=== PATIENT | female | born 1945 | race Caucasian/White ===

== ENCOUNTER 2017-06-29 15:38 | Emergency (ER) | payer OTHER, MEDICARE ==
--- NOTE | 2017-06-29 15:57 | CPEKG ---
Heart Rate: 55 RR Interval: 1091 P-R Interval: 140 QRSD Interval: 90 QT Interval: 432 QTC Interval: 414 P [place]: 73 QRS [place]: 16 T Wave [place]: 36 EKG Severity - NORMAL ECG - EKG Impression: SINUS RHYTHM Electronically Signed By: Ishmael Thacker 29-Jun-2017 16:24:21
[2017-06-29] MEDS ORDERED: NS 1,000 ML IV ONE ×2 (16:14)
[2017-06-29 16:21] LABS: % IMMATURE GRANULYOCYTES 0.3 % (0.0-1.1); ABSOLUTE IMMATURE GRANULOCYTES 0.03 10^3/uL (0.00-0.10); ADD DIFF? NO; ADD MORPH? NO; ADD SCAN? NO; ATYPICAL LYMPHOCYTE FLAG 0 (0-99); FRAGMENT RBC FLAG 0 (0-99); HEMATOCRIT 37.8 % (38.0-47.0); HEMOGLOBIN 13.1 g/dL (12.6-16.3); LEFT SHIFT FLG 0 (0-99); LIPEMIA HEMOLYSIS FLAG 90 (0-99); MEAN CELL HEMOGLOBIN 31.6 pg (27.9-34.1); MEAN CELL HEMOGLOBIN CONCENTR. 34.7 g/dL (32.4-36.7); MEAN CELL VOLUME 91.3 fL (81.5-99.8); MEAN PLATELET VOLUME 8.6 fL (8.7-11.7); PLATELET CLUMPS FLAG 0 (0-99); PLATELET COUNT 203 10^3/uL (150-400); RED BLOOD CELL COUNT 4.14 10^6/uL (4.18-5.33); RED CELL DISTRIBUTION WIDTH 12.8 % (11.5-15.2)
--- NOTE | 2017-06-29 16:23 | EDPHY ---
H & P Stated Complaint: weakness over weekend/cp saw pcp/abnl ekg Time Seen by Provider: 06/29/17 16:07 HPI/ROS: CHIEF COMPLAINT: Fatigue and malaise HISTORY OF PRESENT ILLNESS: The patient is a 72-year-old female referred from the [facility]. She has been complaining of generalized weakness over the weekend. She also feels that her arms are heavy and she has not been sleeping well. She complains of pain throughout her entire body including some pain in her chest and left shoulder. She was seen at the [facility] [place] by Dr. Bell today who sent her here for lab work. She also obtained an EKG and remarked there was some slight abnormality. The the patient states that she had a positive stress test [address] Guzman but refused the cardiac catheterization because she did not feel that she had any risk factors other than her dad dying of cardiac disease. She states that her son had something similar last week. REVIEW OF SYSTEMS: Constitutional: See HPI denies: chills, fever, recent illness, recent injury EENTM: denies: blurred vision, double vision, nose congestion Respiratory: denies: cough, shortness of breath Cardiac: denies: chest pain, irregular heart rate, lightheadedness, palpitations Gastrointestinal/Abdominal: denies: abdominal pain, diarrhea, nausea, vomiting, blood streaked stools Genitourinary: denies: dysuria, frequency, hematuria, pain Musculoskeletal: denies: joint pain, muscle pain Skin: denies: lesions, rash, jaundice, bruising Neurological: denies: headache, numbness, paresthesia, tingling, dizziness, weakness Hematologic/Lymphatic: denies: blood clots, easy bleeding, easy bruising Immunologic/allergic: denies: HIV/AIDS, transplant EXAM: GENERAL: Well-appearing, well-nourished and in no acute distress. HEAD: Atraumatic, normocephalic. EYES: Pupils equal round and reactive to light, extraocular movements intact, sclera anicteric, conjunctiva are normal. ENT: TMs normal, nares patent, oropharynx clear without exudates. Moist mucous membranes. NECK: Normal range of motion, supple without lymphadenopathy or JVD. LUNGS: Breath sounds clear to auscultation bilaterally and equal. No wheezes rales or rhonchi. HEART: Regular rate and rhythm without murmurs, rubs or gallops. ABDOMEN: Soft, nontender, normoactive bowel sounds. No guarding, no rebound. No masses appreciated. BACK: No CVA tenderness, no spinal tenderness, step-offs or deformities EXTREMITIES: Normal range of motion, no pitting or edema. No clubbing or cyanosis. NEUROLOGICAL: Cranial nerves II through XII grossly intact. Normal speech, normal gait. 5/5 strength, normal movement in all extremities, normal sensation PSYCH: Normal mood, normal affect. SKIN: Warm, dry, normal turgor, no visible rashes or lesions. Source: Patient Exam Limitations: No limitations - Personal History Current Tetanus/Diphtheria Vaccine: Yes - Medical/Surgical History Hx Asthma: No Hx Chronic Respiratory Disease: No Hx Diabetes: No Hx Cardiac Disease: No Hx Renal Disease: No Hx Cirrhosis: No Hx Alcoholism: No Hx HIV/AIDS: No Hx Splenectomy or Spleen Trauma: No Other PMH: healthy. +family hx father--> [place] in early 60s - Family History Significant Family History: Heart disease - Social History Smoking Status: Never smoked Alcohol Use: Sober Drug Use: None Constitutional: Initial Vital Signs Temperature (C) 36.7 C 06/29/17 15:43 Heart Rate 54 L 06/29/17 15:43 Respiratory Rate 18 06/29/17 15:43 Blood Pressure 131/61 H 06/29/17 15:43 O2 Sat (%) 97 06/29/17 15:43 O2 Delivery Mode Room Air Allergies/Adverse Reactions: Sulfa (Sulfonamide Antibiotics) Allergy (Intermediate, Verified 06/29/17 15:42) Hives Penicillins Allergy (Mild, Verified 06/29/17 15:42) Rash Home Medications: Medication Instructions Recorded NK [No Known Home Meds] 06/29/17 Medical Decision Making - Diagnostics EKG Interpretation: An EKG obtained and was read and documented in trace view. Please see trace view for full reading and report. Sinus rhythm, no acute ischemic changes, slightly bradycardic unchanged from previous, EKG done this morning unavailable. Imaging Results: Imaging Impressions Chest X-Ray 06/29/17 16:15 Impression: No acute findings in the chest. Imaging: Discussed imaging studies w/ striper spray gun Radiologist ED Course/Re-evaluation: We discussed the patient's test results. She is reassured. She is feeling better after GI cocktail. She is eager to go home. I offered admission and continue cardiac evaluation although her acute symptoms do not seem consistent with cardiac disease. She has previously been offered a catheterization and declined. She again declines. I suspect that she has a viral syndrome similar to that of her son last week. Patient's agrees and is ready to take her home. We discussed indications for returning. They will follow up with her regular doctor within 48 hours. Differential Diagnosis: Partial list of the Differential diagnosis considered include but were not limited to; viral syndrome, dehydration, electrolyte abnormality and although unlikely based on the history and physical exam, I also considered acute coronary disease, sepsis, PE. I discussed these differential diagnoses and the plan with the patient as well as the usual and expected course. The patient understands that the diagnosis is provisional and that in medicine we are not always correct and that further workup is often warranted. Usual and customary warnings were given. All of the patient's questions were answered. The patient was instructed to return to the emergency department should the symptoms at all worsen or return, otherwise to followup with the physician as we discussed. - Data Points Laboratory Results: Laboratory Results 06/29/17 16:00 06/29/17 16:00 06/29/17 06/29/17 06/29/17 16:00 16:00 16:00 WBC 9.33 10^3/uL 10^3/uL (3.80-9.50) RBC 4.14 10^6/uL L 10^6/uL (4.18-5.33) Hgb 13.1 g/dL g/dL (12.6-16.3) Hct 37.8 % L % (38.0-47.0) MCV 91.3 fL fL (81.5-99.8) MCH 31.6 pg pg (27.9-34.1) MCHC 34.7 g/dL g/dL (32.4-36.7) RDW 12.8 % % (11.5-15.2) Plt Count 203 10^3/uL 10^3/uL (150-400) MPV 8.6 fL L fL (8.7-11.7) Neut % (Auto) 77.7 % H % (39.3-74.2) Lymph % (Auto) 13.0 % L % (15.0-45.0) Grimes % (Auto) 7.2 % % (4.5-13.0) Eos % (Auto) 1.4 % % (0.6-7.6) Baso % (Auto) 0.4 % % (0.3-1.7) Nucleat RBC Rel Count 0.0 % % (0.0-0.2) Absolute Neuts (auto) 7.25 10^3/uL H 10^3/uL (1.70-6.50) Absolute Lymphs (auto) 1.21 10^3/uL 10^3/uL (1.00-3.00) Absolute Monos (auto) 0.67 10^3/uL 10^3/uL (0.30-0.80) Absolute Eos (auto) 0.13 10^3/uL 10^3/uL (0.03-0.40) Absolute Basos (auto) 0.04 10^3/uL 10^3/uL (0.02-0.10) Absolute Nucleated RBC 0.00 10^3/uL 10^3/uL (0-0.01) Immature Gran % 0.3 % % (0.0-1.1) Immature Gran # 0.03 10^3/uL 10^3/uL (0.00-0.10) PT 14.6 SEC SEC (12.0-15.0) INR 1.15 (0.83-1.16) APTT 29.0 SEC SEC (23.0-38.0) D-Dimer < 0.27 ug/mLFEU ug/mLFEU (0.00-0.50) Sodium 139 mEq/L mEq/L (134-144) Potassium 3.5 mEq/L mEq/L (3.5-5.2) Chloride 102 mEq/L mEq/L (97-110) Carbon Dioxide 25 mEq/l mEq/l (22-31) Anion Gap 12 mEq/L mEq/L (8-16) BUN 13 mg/dL mg/dL (7-23) Creatinine 0.7 mg/dL mg/dL (0.6-1.0) Estimated GFR > 60 Glucose 93 mg/dL mg/dL (70-100) Calcium 9.0 mg/dL mg/dL (8.5-10.4) Total Bilirubin 0.8 mg/dL mg/dL (0.1-1.4) Conjugated Bilirubin 0.4 mg/dL mg/dL (0.0-0.5) Unconjugated Bilirubin 0.4 mg/dL mg/dL (0.0-1.1) AST 21 IU/L IU/L (14-46) ALT 24 IU/L IU/L (9-52) Alkaline Phosphatase 69 IU/L IU/L (38-126) Troponin I < 0.012 ng/mL ng/mL (0-0.034) Total Protein 6.8 g/dL g/dL (6.3-8.2) Albumin 4.0 g/dL g/dL (3.5-5.0) Lipase 84.0 IU/L IU/L (23-300) Medications Given: Discontinued Medications Al Hydroxide/Mg Hydroxide (Maalox Susp) 30 ml PO EDNOW ONE Stop: 06/29/17 17:28 Last Admin: 06/29/17 17:36 Dose: 30 ml Hyoscyamine Sulfate (Levsin, Hyomax-Sl) 0.125 mg PO EDNOW ONE Stop: 06/29/17 17:32 Last Admin: 06/29/17 17:36 Dose: 0.125 mg Sodium Chloride (Ns) 1,000 mls @ 0 mls/hr IV ONCE ONE; Wide Open PRN Reason: Protocol Stop: 06/29/17 16:15 Last Admin: 06/29/17 16:46 Dose: 1,000 mls Sodium Chloride (Ns) 1,000 mls @ 0 mls/hr IV ONCE ONE; Wide Open PRN Reason: Protocol Stop: 06/29/17 16:15 Last Admin: 06/29/17 16:47 Dose: 1,000 mls Lidocaine (Lidocaine 2% Viscous) 5 ml PO EDNOW ONE Stop: 06/29/17 17:29 Last Admin: 06/29/17 17:36 Dose: 15 ml Departure - Departure Disposition: Home, Routine, Self-Care Clinical Impression: Body aches Fatigue Qualifiers: Fatigue type: unspecified Qualified Code(s): R53.83 - Other fatigue Condition: Fair Instructions: Viral Syndrome (ED) Referrals: Chey Bell MD [Primary Care Provider] - As per Instructions
[2017-06-29 16:33] LABS: INR 1.15 (0.83-1.16); PROTIME(PATIENT) 14.6 SEC (12.0-15.0)
[2017-06-29 16:37] LABS: ALANINE AMINOTRANSFERASE 24 IU/L (9-52); ALKALINE PHOSPHATASE 69 IU/L (38-126); ANION GAP 12 mEq/L (8-16); ASPARTATE AMINOTRANSFERASE 21 IU/L (14-46); BILIRUBIN,TOTAL 0.8 mg/dL (0.1-1.4); BILIRUBIN-CONJUGATED 0.4 mg/dL (0.0-0.5); BILIRUBIN-UNCONJUGATED 0.4 mg/dL (0.0-1.1); CARBON DIOXIDE 25 mEq/l (22-31); CHLORIDE 102 mEq/L (97-110); CREATININE 0.7 mg/dL (0.6-1.0); GLOMERULAR FILTRATION RATE > 60; GLUCOSE 93 mg/dL (70-100); POTASSIUM 3.5 mEq/L (3.5-5.2); SODIUM 139 mEq/L (134-144); TOTAL PROTEIN 6.8 g/dL (6.3-8.2)
[2017-06-29 16:48] LABS: TROPONIN I < 0.012 ng/mL (0-0.034)
[2017-06-29] MEDS ORDERED: MAG HYDROX/AL HYDROX/SIMETH 30 ML UDCUP PO ONE (17:27)
[2017-06-29] MEDS ORDERED: LIDOCAINE 2% VISCOUS 15 ML UDCUP PO ONE (17:28)
[2017-06-29] MEDS ORDERED: HYOSCYAMINE SULFATE 0.125 MG TAB PO ONE (17:31)
[2017-06-29 18:13] VITALS: RESP 16
[2017-06-29 18:16] VITALS: BP 128/58; PULSE 64; TEMP 97.9; O2SAT 96
== END 2017-06-29 18:20 | disposition home or self-care (01) ==
DX: R53.83 Other fatigue (principal); R52 Pain, unspecified; E86.9 Volume depletion, unspecified

== ENCOUNTER → 2017-10-23 | Outpatient (CLI) | payer OTHER, MEDICARE | LOC: FIMAGING 08:35 | PROVIDERS: ATTEND Physician Assistant | DX: M51.34 Other intervertebral disc degeneration, thoracic region (principal) ==

== ENCOUNTER 2017-11-10 11:24 | Day surgery (SDC) | payer OTHER, MEDICARE ==
[2017-11-10] MEDS ORDERED: diphenhydrAMINE 25 MG CAP PO ONE ×2 (11:28→11:42)
[2017-11-10] MEDS ORDERED: NS 1,000 ML IV ONE (11:28)
[2017-11-10] MEDS ORDERED: FAMOTIDINE 20 MG TAB PO ONE (11:28)
[2017-11-10] MEDS ORDERED: ASPIRIN EC 325 MG TAB PO ONE ×2 (11:28→11:43)
[2017-11-10] MEDS ORDERED: FAMOTIDINE 20 MG TAB ONE (11:42)
[2017-11-10] MEDS ORDERED: DIAZEPAM 5 MG TAB ONE (11:43)
--- NOTE | 2017-11-10 11:57 | CPEKG ---
Heart Rate: 57 RR Interval: 1053 P-R Interval: 136 QRSD Interval: 84 QT Interval: 436 QTC Interval: 425 P [place]: 69 QRS [place]: 8 T Wave [place]: 68 EKG Severity - NORMAL ECG - EKG Impression: SINUS RHYTHM Electronically Signed By: Doreen Bergeron 10-Nov-2017 19:04:59
[2017-11-10 12:10] LABS: % IMMATURE GRANULYOCYTES 0.3 % (0.0-1.1); ABSOLUTE IMMATURE GRANULOCYTES 0.02 10^3/uL (0.00-0.10); ADD DIFF? NO; ADD MORPH? NO; ADD SCAN? NO; ATYPICAL LYMPHOCYTE FLAG 10 (0-99); FRAGMENT RBC FLAG 0 (0-99); HEMATOCRIT 42.4 % (38.0-47.0); HEMOGLOBIN 14.7 g/dL (12.6-16.3); LEFT SHIFT FLG 0 (0-99); LIPEMIA HEMOLYSIS FLAG 90 (0-99); MEAN CELL HEMOGLOBIN 31.4 pg (27.9-34.1); MEAN CELL HEMOGLOBIN CONCENTR. 34.7 g/dL (32.4-36.7); MEAN CELL VOLUME 90.6 fL (81.5-99.8); MEAN PLATELET VOLUME 8.3 fL (8.7-11.7); PLATELET CLUMPS FLAG 0 (0-99); PLATELET COUNT 237 10^3/uL (150-400); RED BLOOD CELL COUNT 4.68 10^6/uL (4.18-5.33); RED CELL DISTRIBUTION WIDTH 12.8 % (11.5-15.2)
[2017-11-10] MEDS: DIAZEPAM 5 MG TAB PO ONE ×2 (12:14→13:18)
[2017-11-10 12:22] LABS: INR 1.05 (0.83-1.16); PROTIME(PATIENT) 13.9 SEC (12.0-15.0)
[2017-11-10 12:30] LABS: ANION GAP 11 mEq/L (8-16); CALCIUM 9.5 mg/dL (8.5-10.4); CARBON DIOXIDE 27 mEq/l (22-31); CHLORIDE 104 mEq/L (97-110); CHOLESTEROL 201 mg/dL (140-220); CHOLESTEROL/HDL RATIO 2.79 RATIO (1.00-4.44); CREATININE 0.8 mg/dL (0.6-1.0); GLOMERULAR FILTRATION RATE > 60; GLUCOSE 88 mg/dL (70-100); HIGH DENSITY LIPOPROTEIN 72 mg/dL (40-85); LDL/HDL RATIO 1.56 RATIO (1.00-3.22); LOW DENSITY LIPOPROTEIN 112 mg/dL (80-100); MAGNESIUM 1.9 mg/dL (1.6-2.3); NON-HIGH DENSITY LIPOPROTEIN 129 mg/dL (90-129); SODIUM 142 mEq/L (134-144); TRIGLYCERIDE 89 mg/dL (35-135); VERY LOW DENSITY LIPOPROTEINS 17 mg/dL (8-25)
[2017-11-10] MEDS ORDERED: LIDOCAINE 1% 300 MG/30 ML SDV ONE (13:14)
[2017-11-10] MEDS ORDERED: fentaNYL 100 MCG/2 ML INJ ONE (13:14)
[2017-11-10] MEDS ORDERED: MIDAZOLAM 2 MG/2 ML VIAL ONE (13:15)
[2017-11-10] MEDS ORDERED: IOPAMIDOL (ISOVUE-370) 150 ML BTL IV ONE (13:15)
--- NOTE | 2017-11-10 13:18 | PDPROPOC ---
Sedation Plan of Care Sedation Plan of Care: vital signs stable, mental status noted, patient educated of risks, benefits, alternatives, patient can tolerate sedation ASA Classification: ASA 3 Planned drugs: fentanyl, midazolam Mallampati Score: Class 3 Mallampati Reference Image: Patient passed 3-3-2 rule?: Yes
--- NOTE | 2017-11-10 13:18 | PDHPUP ---
History & Physical Update H&P update statement: This history and physical update is based on an assessment of the patient which was completed after admission or registration (within 24 hours), but prior to the surgery/procedure. H&P update: H&P reviewed & patient examined, no change in patient's condition since H&P completed
--- NOTE | 2017-11-10 14:00 | PDDXCAT ---
Diagnostic Cath Note - . Date: 11/10/17 Automotive L[employer] Technician: Micah Indication: Patient w angina/susp CAD, cannot be risk stratified by other means - Procedure Access: right groin Procedure: left heart catheterization - Materials Left Heart Cath size: 6F Left Heart Cath materials: standard multipack (JL4, JR4, pigtail) - Findings-Left Heart Catheterization LM: It is 6mm in size and bifurcates into an LAD and circumflex system. It is free of disease. LAD: It is 3.5 Proximal stenosis 30%-40%. OMEGA III flow throughout. LCX: 4mm in size. There is a large obtuse marginal system which is free of flow limiting disease. OMEGA III flow throughout. RCA: RCA is dominant. Gives rise to PDA and 3 small posteriolateral ventricular branches all of which are free of flow limiting obstruction. There is a 10% lesion after the takeoff of the right atrial branch. OMEGA III flow throughout. EDP: LVEDP is 12 mmHg. LVEF: 65% and normal. Wall motion: No segmental wall motion abnormalities are identified. There is no evidence of stenosis on pull back. There is no cristine aneurysm or dissection. Complications: NONE. Estimated blood loss: <50ml Closure method: Angioseal Assessment: There is no evidence of flow limiting obstruction, dissection, or thrombus. OMEGA III flow throughout. The patient does have cachil dehe vessel coronary disease without evidence of flow limiting obstruction. Plan: The patient should be treated to achieve a Non-HDL cholesterol of less than 100mg/dL with a statin based regimen. Antiplatelet therapy with Aspirin 81mg daily should also be initiated. Intervention: NONE. Patient Problems: Problems Problem Status Onset CAD (coronary artery disease) Acute
[2017-11-10] MEDS ORDERED: HYDROCODONE/APAP 5/325 TAB PO PRN (14:29)
[2017-11-10] MEDS ORDERED: NITROGLYCERIN 0.4 MG BTL SL PRN (14:29)
[2017-11-10] MEDS ORDERED: ONDANSETRON 4 MG/2 ML VIAL IVP PRN (14:29)
[2017-11-10] MEDS ORDERED: OXYCODONE/APAP 5/325 TAB PO PRN (14:29)
[2017-11-10] MEDS ORDERED: ATROPINE SULFATE 1 MG/10 ML SYR IVP PRN (14:29)
== END 2017-11-10 18:02 | disposition home or self-care (01) ==
LOC: FCATH 11:24
PROVIDERS: ATTEND Internal Medicine Cardiovascular Disease
PROC: B2111ZZ Fluoroscopy of Multiple Coronary Arteries using Low Osmolar Contrast (ICD-10-PCS; principal; 2017-11-10)
PROC: B2151ZZ Fluoroscopy of Left Heart using Low Osmolar Contrast (ICD-10-PCS; principal; 2017-11-10)
PROC: 4A023N7 Measurement of Cardiac Sampling and Pressure, Left Heart, Percutaneous Approach (ICD-10-PCS; principal; 2017-11-10)
DX: I25.119 Atherosclerotic heart disease of native coronary artery with unspecified angina pectoris (principal)
CPT/HCPCS: C1760; J1644; J2250; J3010; Q9967

== ENCOUNTER → 2018-04-06 | Outpatient (CLI) | payer OTHER | LOC: FIMAGING 12:06 | PROVIDERS: ATTEND Family Medicine | DX: Z12.31 Encounter for screening mammogram for malignant neoplasm of breast (principal); Z80.3 Family history of malignant neoplasm of breast; E04.1 Nontoxic single thyroid nodule ==

== ENCOUNTER → 2018-04-25 | Outpatient (CLI) | payer OTHER ==
[~2018-04-25] MED LIST: LIDOCAINE 1% 300 MG/30 ML SDV ONE
== END ==
LOC: FIMAGING 09:54
PROVIDERS: ATTEND Otolaryngology
PROC: 0G9G3ZX Drainage of Left Thyroid Gland Lobe, Percutaneous Approach, Diagnostic (ICD-10-PCS; principal; 2018-04-25)
DX: E04.1 Nontoxic single thyroid nodule (principal)

== ENCOUNTER → 2019-04-25 | Outpatient (CLI) | payer OTHER | LOC: FIMAGING 14:19 ==